=== PATIENT | male | born 1990 | race Hispanic/Latino ===

== ENCOUNTER 2022-01-10 20:52 | Emergency (ER) | payer OTHER ==
[~2022-01-10] VITALS: Ht 167.6 cm; Wt 68.5 kg
[2022-01-10 20:55] VITALS: BP 120/75
[2022-01-10] MEDS ORDERED: IBUPROFEN 600 MG TABLET PO ONE (21:30)
[2022-01-10] MEDS ORDERED: IBUP-2071 PO (21:37)
== END 2022-01-10 22:04 | disposition home or self-care (01) ==
LOC: EDH 20:52
DX: S63.611A Unspecified sprain of left index finger, initial encounter (principal); S63.613A Unspecified sprain of left middle finger, initial encounter; W22.01XA Walked into wall, initial encounter; Y93.89 Activity, other specified; Y92.89 Other specified places as the place of occurrence of the external cause; Y99.8 Other external cause status
CPT/HCPCS: 73140

== ENCOUNTER 2023-07-22 19:02 | Emergency (ER) | payer OTHER ==
[~2023-07-22] VITALS: Ht 167.6 cm; Wt 65.8 kg
[~2023-07-22 19:02] MED LIST: IBUP-2071 PO
[2023-07-22 19:07] VITALS: BP 137/76; PULSE 98; RESP 20
[2023-07-22] MEDS ORDERED: CYCL-309 PO (21:21)
[2023-07-22] MEDS ORDERED: IBUP-1493 PO (21:21)
== END 2023-07-22 21:35 | disposition home or self-care (01) ==
LOC: EDH 19:02
DX: S16.1XXA Strain of muscle, fascia and tendon at neck level, initial encounter (principal); S29.011A Strain of muscle and tendon of front wall of thorax, initial encounter; Z79.1 Long term (current) use of non-steroidal anti-inflammatories (NSAID); V89.2XXA Person injured in unspecified motor-vehicle accident, traffic, initial encounter; Y93.I9 Activity, other involving external motion; Y92.89 Other specified places as the place of occurrence of the external cause; Y99.8 Other external cause status
CPT/HCPCS: 71045; 84484; 93005